=== PATIENT | female | born 1945 | race Two or more races ===

== ENCOUNTER 2021-10-09 10:30 | Outpatient (CLI) | payer MEDICARE, BC ==
[2021-10-09] MEDS ORDERED: UREA 10% -AHA 4% CREAM 57 GM TUBE ONE (11:38)
== END 2021-10-09 23:59 | disposition home or self-care (01) ==
LOC: WOU 10:30
PROVIDERS: ATTEND Podiatrist Foot & Ankle Surgery
DX: L60.0 Ingrowing nail (principal); L84 Corns and callosities; M20.41 Other hammer toe(s) (acquired), right foot; M20.11 Hallux valgus (acquired), right foot; M25.372 Other instability, left ankle; E10.9 Type 1 diabetes mellitus without complications
CPT/HCPCS: G0463

== ENCOUNTER 2021-11-14 13:00 | Outpatient (CLI) | payer MEDICARE, BC | END 2021-11-14 23:59 | disposition home or self-care (01) | LOC: WOU 13:00 | PROVIDERS: ATTEND Podiatrist Foot & Ankle Surgery | DX: L60.0 Ingrowing nail (principal); L84 Corns and callosities; M25.372 Other instability, left ankle; M20.11 Hallux valgus (acquired), right foot; M20.41 Other hammer toe(s) (acquired), right foot; E10.9 Type 1 diabetes mellitus without complications; Z79.4 Long term (current) use of insulin; M79.672 Pain in left foot; M79.671 Pain in right foot | CPT/HCPCS: G0463 ==

== ENCOUNTER 2022-08-07 14:08 | Outpatient (CLI) | payer MEDICARE, BC | END 2022-08-07 23:59 | disposition home or self-care (01) | LOC: WOU 14:08 | PROVIDERS: ATTEND Podiatrist Foot & Ankle Surgery | DX: L84 Corns and callosities (principal); M79.672 Pain in left foot; M79.671 Pain in right foot; E10.9 Type 1 diabetes mellitus without complications | CPT/HCPCS: G0463 ==